=== PATIENT | male | born 1980 | race African-American/Black ===

== ENCOUNTER 2021-02-02 18:58 | Inpatient (IN) ==
[2021-02-02 20:06] LABS: Basophils % 0.2 % (0.0-0.8); Eosinophils # 0.1 10*3/uL (0.0-0.87); Eosinophils % 1.4 % (0.00-10.9); Hemoglobin 13.6 GM/DL (14.0-18.0); Immature Granulocytes % 0.2 %; Immature Granulocytes Absolute 0.02 #; Lymphocytes # 1.9 10*3/uL (1.4-4.0); Lymphocytes % 19.8 % (21.2-54.2); Mean Corpuscular HGB Conc 33.2 GM/DL (32-36); Mean Corpuscular Volume 95.6 FL (87-102); Monocytes % 4.6 % (1.7-12.7); Neutrophils % 73.8 % (38.7-73.9); Platelet Count 293 T/CUMM (130-400); Red Blood Count 4.29 MC/CUMM (3.8-5.5); Red Cell Distribution Width 13.5 % (9.3-17.3); White Blood Count 9.5 T/CUMM (4-12)
[2021-02-02 20:17] LABS: PT Patient Result 11.1 SECS (10.5-12.0); Partial Thromboplastin Time 29.4 SECS (23.8-32.1)
[2021-02-02 20:39] LABS: Bilirubin,Total 0.6 MG/DL (0.20-1.00); Calcium 9.1 MG/DL (8.5-10.1); Osmolality,Calculated 274.5 MOS/KG (273-304); Potassium 3.6 MMOL/L (3.5-5.1); Total Protein 8.2 G/DL (6.4-8.2)
[2021-02-02] MEDS ORDERED: LABETALOL 20 MG/4 ML SYRINGE IV STA (21:45)
[2021-02-02] MEDS ORDERED: ACETAMINOPHEN 325 MG TABLET PO PRN (22:22)
[2021-02-02] MEDS ORDERED: ZALEPLON 5 MG CAPSULE PO PRN (22:22)
[2021-02-02] MEDS ORDERED: DEXTROSE 50% 25 GM/50 ML VIAL IV PRN (22:22)
[2021-02-02] MEDS ORDERED: guaiFENesin/DM ER 600-30 MG TABLET PO PRN (22:22)
[2021-02-02] MEDS ORDERED: NICOTINE 21 MG/24 HR PATCH TRANSDERM PRN (22:22)
[2021-02-02] MEDS ORDERED: GLUCAGON 1 MG VIAL IM PRN (22:22)
[2021-02-02] MEDS ORDERED: MORPHINE 2 MG/1 ML SYRINGE IV PRN (22:22)
[2021-02-02] MEDS ORDERED: diphenhydrAMINE CAP 25 MG CAPSULE PO PRN (22:22)
[2021-02-02] MEDS ORDERED: ONDANSETRON 4 MG/2 ML VIAL IV PRN (22:22)
[2021-02-02] MEDS ORDERED: hydrALAZINE 20 MG/1 ML VIAL IV PRN (22:22)
[2021-02-02] MEDS ORDERED: SODIUM CHLORIDE 0.9% 1,000 ML IV SCH (22:30)
[2021-02-02] MEDS ORDERED: amLODIPine 5 MG TABLET PO STA (22:37)
[2021-02-02] MEDS ORDERED: lisinopriL 10 MG TABLET PO STA (22:38)
[2021-02-02 22:50] LABS: Bilirubin,Urine Negative (Negative); Blood, Urine Moderate mg/dL (Negative); Glucose,Urine (UA) Negative (Negative); Ketones,Urine Negative (Negative); Mucus,Urine Occasional /LPF (Occasional); Nitrite,Urine Negative (Negative); Protein,Urine Negative; RBC,Urine 18 /HPF (0-4); Urine Appearance CLEAR (Clear); Urine Color Yellow (Yellow); Urine Specific Gravity 1.046 (1.001-1.035); Urine Urobilinogen < 2.0 EU/DL (0.2-1.0)
[2021-02-02] MEDS: PIPERACILLIN/TAZOBACTAM 3,375 MG in SODIUM CHLORIDE 0.9% 100 ML IV SCH (23:08)
[2021-02-03] MEDS ORDERED: ASPIRIN 325 MG TABLET PO STA (00:03)
[2021-02-03] MEDS: SODIUM CHLORIDE 0.9% 1,000 ML IV SCH ×3 (03:19→23:39)
[2021-02-03 04:16] LABS: Basophils % 0.2 % (0.0-0.8); Eosinophils # 0.2 10*3/uL (0.0-0.87); Eosinophils % 2.1 % (0.00-10.9); Hematocrit 39.1 VOL% (42.0-52.0); Hemoglobin 12.9 GM/DL (14.0-18.0); Immature Granulocytes % 0.4 %; Immature Granulocytes Absolute 0.04 #; Lymphocytes # 2.5 10*3/uL (1.4-4.0); Lymphocytes % 25.6 % (21.2-54.2); Mean Corpuscular Volume 95.4 FL (87-102); Mean Platelet Volume 10.2 FL (9.6-12.0); Monocytes % 5.8 % (1.7-12.7); Neutrophils % 65.9 % (38.7-73.9); Platelet Count 281 T/CUMM (130-400); Red Cell Distribution Width 13.4 % (9.3-17.3); White Blood Count 9.9 T/CUMM (4-12)
[2021-02-03 04:45] LABS: Osmolality,Calculated 276.4 MOS/KG (273-304); Potassium 2.8 MMOL/L (3.5-5.1); Risk Ratio 4.1; Thyroid Stimulating Hormone 2.71 uIU/ml (0.358-3.74); VLDL Cholesterol 19.2 MG/DL
[2021-02-03] MEDS: POTASSIUM CHLORIDE 20 MEQ TABLET PO PRN ×2 (06:12→09:21)
[2021-02-03] MEDS: PIPERACILLIN/TAZOBACTAM 3,375 MG in SODIUM CHLORIDE 0.9% 100 ML IV SCH ×3 (06:12→22:00)
[2021-02-03] MEDS ORDERED: LISINOPRIL/HCTZ 20-12.5 MG TABLET PO SCH (09:00)
[2021-02-03] MEDS ORDERED: INFLUENZA VIRUS VACCINE 0.5 ML SYRINGE IM ONE (09:00)
[2021-02-03] MEDS: PANTOPRAZOLE 40 MG TABLET PO SCH (09:10)
[2021-02-03] MEDS: ASPIRIN EC 81 MG TABLET PO SCH (09:10)
[2021-02-03] MEDS: BISACODYL 5 MG TABLET PO SCH (09:10)
[2021-02-03] MEDS ORDERED: cefTRIAXone 2,000 MG in SODIUM CHLORIDE 0.9% 100 ML IV SCH (15:00)
[2021-02-03] MEDS: ATORVASTATIN 20 MG TABLET PO SCH (21:42)
[2021-02-04 05:44] LABS: Basophils % 0.4 % (0.0-0.8); Eosinophils # 0.3 10*3/uL (0.0-0.87); Eosinophils % 3.2 % (0.00-10.9); Hematocrit 37.7 VOL% (42.0-52.0); Hemoglobin 12.2 GM/DL (14.0-18.0); Immature Granulocytes % 0.2 %; Immature Granulocytes Absolute 0.02 #; Lymphocytes # 2.4 10*3/uL (1.4-4.0); Lymphocytes % 29.9 % (21.2-54.2); Mean Corpuscular HGB Conc 32.4 GM/DL (32-36); Mean Corpuscular Volume 97.4 FL (87-102); Mean Platelet Volume 10.3 FL (9.6-12.0); Monocytes % 6.7 % (1.7-12.7); Neutrophils % 59.6 % (38.7-73.9); Platelet Count 257 T/CUMM (130-400); Red Blood Count 3.87 MC/CUMM (3.8-5.5); Red Cell Distribution Width 13.8 % (9.3-17.3); White Blood Count 8.1 T/CUMM (4-12)
[2021-02-04 06:10] LABS: Calcium 8.5 MG/DL (8.5-10.1); Potassium 3.7 MMOL/L (3.5-5.1)
[2021-02-04] MEDS: PIPERACILLIN/TAZOBACTAM 3,375 MG in SODIUM CHLORIDE 0.9% 100 ML IV SCH (06:16)
[2021-02-04] MEDS: BISACODYL 5 MG TABLET PO SCH (09:03)
[2021-02-04] MEDS: ASPIRIN EC 81 MG TABLET PO SCH (09:04)
[2021-02-04] MEDS: PANTOPRAZOLE 40 MG TABLET PO SCH (09:04)
[2021-02-04] MEDS: AMOXICILLIN/CLAV 875 MG TABLET PO SCH (12:22)
[2021-02-04] MEDS: ATORVASTATIN 20 MG TABLET PO SCH (20:56)
[2021-02-04] MEDS: SODIUM CHLORIDE 0.9% 1,000 ML IV SCH ×2 (21:05→21:08)
[2021-02-05] MEDS: AMOXICILLIN/CLAV 875 MG TABLET PO SCH ×2 (00:21→11:00)
[2021-02-05 05:48] LABS: Basophils % 0.4 % (0.0-0.8); Eosinophils # 0.3 10*3/uL (0.0-0.87); Eosinophils % 3.7 % (0.00-10.9); Hematocrit 39.9 VOL% (42.0-52.0); Hemoglobin 13.2 GM/DL (14.0-18.0); Immature Granulocytes % 0.1 %; Immature Granulocytes Absolute 0.01 #; Lymphocytes # 2.6 10*3/uL (1.4-4.0); Lymphocytes % 30.7 % (21.2-54.2); Mean Corpuscular HGB Conc 33.1 GM/DL (32-36); Mean Corpuscular Volume 96.1 FL (87-102); Mean Platelet Volume 10.5 FL (9.6-12.0); Monocytes % 6.8 % (1.7-12.7); Neutrophils % 58.3 % (38.7-73.9); Platelet Count 267 T/CUMM (130-400); Red Blood Count 4.15 MC/CUMM (3.8-5.5); Red Cell Distribution Width 13.4 % (9.3-17.3); White Blood Count 8.4 T/CUMM (4-12)
[2021-02-05 06:12] LABS: Calcium 8.6 MG/DL (8.5-10.1); Osmolality,Calculated 279.1 MOS/KG (273-304); Potassium 3.2 MMOL/L (3.5-5.1)
[2021-02-05] MEDS: SODIUM CHLORIDE 0.9% 1,000 ML IV SCH (06:39)
[2021-02-05] MEDS ORDERED: amLODIPine 5 MG TABLET PO SCH (09:00)
[2021-02-05] MEDS: PANTOPRAZOLE 40 MG TABLET PO SCH (09:05)
[2021-02-05] MEDS: BISACODYL 5 MG TABLET PO SCH (09:05)
[2021-02-05] MEDS: ASPIRIN EC 81 MG TABLET PO SCH (09:05)
[2021-02-05] MEDS ORDERED: POTASSIUM CHLORIDE 20 MEQ TABLET PO ONE (09:30)
[2021-02-05 12:35] VITALS: BP 179/120
[2021-02-05] MEDS ORDERED: amLODIPine 5 MG TABLET PO ONE (16:12)
[2021-02-05] MEDS ORDERED: ATORVASTATIN 80 MG TABLET PO SCH (21:00)
== END 2021-02-05 16:27 | disposition home or self-care (01) | DRG 65 ==
LOC: N.ED 18:58 → SUATTDRO 22:22 → N.EDINP 22:22 → N.3E 23:09
PROVIDERS: ADMIT Emergency Medicine; ATTEND Internal Medicine